=== PATIENT | female | born 1970 | race Caucasian/White ===

== ENCOUNTER → 2016-09-09 | Outpatient (REF) ==
--- NOTE | 2016-09-09 14:16 | Diagnostic Imaging Report ---
INDICATION: Right knee pain. FINDINGS: Three views of the right knee show no fracture, dislocation, or other acute abnormalities. IMPRESSION: Negative right knee. Dictated by: Dictated on workstation # [id number]
== END | disposition home or self-care (01) ==
LOC: OCC 13:40
PROVIDERS: ATTEND Family Medicine
CPT/HCPCS: 73562

== ENCOUNTER → 2016-09-09 | Outpatient (REF) | END | disposition home or self-care (01) | LOC: OCC 13:37 | PROVIDERS: ATTEND Family Medicine ==

== ENCOUNTER → 2016-10-05 | Outpatient (REF) ==
--- NOTE | 2016-10-05 16:35 | Diagnostic Imaging Report ---
PROCEDURE: MRI right joint lower extremity without contrast. TECHNIQUE: Multiplanar, multisequence non contrast-enhanced MRI of the right lower extremity was accomplished. INDICATION: Right knee pain. FINDINGS: There is a tiny suprapatellar effusion. Very tiny popliteal cyst is seen. There is no significant abnormality in the extensor mechanism. The ACL demonstrates mild increased signal with no disruption of its fibers, may relate to an old injury. The PCL is intact. There is an oblique tear involving the posterior horn of the medial meniscus with the tear extending to the apex of the meniscus in the body portion. The anterior horn appears intact. There is mild increased signal in the posterior root of the medial meniscus may relate to degeneration with no definitive tear. The lateral meniscus demonstrates no definite tear. The lateral collateral ligament components demonstrate no significant tear. The muscle bulk and signal around the knee appear grossly unremarkable. The cartilage appears from preserved in the lateral compartment. About 25% thinning in the cartilage in the medial compartment is seen. The cartilage along the patella demonstrates 50-75% thinning, and is worse in the upper aspect of the patella with areas of subchondral marrow edema. IMPRESSION: 1. There is an oblique tear involving the posterior horn and extending into the apex of the body of the medial meniscus. 2. Increased signal in the ACL without disruption of its fibers is probably secondary to old injury. 3. Patellar chondromalacia. Dictated by: Dictated on workstation # [id number]
== END | disposition home or self-care (01) ==
LOC: OCC 14:58
PROVIDERS: ATTEND Family Medicine
CPT/HCPCS: 73721